=== PATIENT | female | born 1995 | race Caucasian/White ===

== ENCOUNTER 2020-06-26 10:00 | Outpatient (REF) | payer OTHER, SELFPAY | END 2020-06-26 10:01 | disposition home or self-care (01) | LOC: HO.WFDLDS 10:00 | PROVIDERS: PCP Hospitalist; Visit Provider Hospitalist | DX: Z11.7 Encounter for testing for latent tuberculosis infection (principal) | CPT/HCPCS: 86481 ==

== ENCOUNTER 2024-12-02 08:21 | Outpatient (AMB) | payer OTHER, SELFPAY ==
--- NOTE | 2024-12-02 08:22 | MHC.PC.OV ---
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 Intake Note: New patient to establish care Tax Examining Technician Required: No Allergies No Known Allergies Allergy (Verified 12/02/24 08:41) Medication List - Last Reconciled 12/02/24 by EKIRY Taveras No Known Home Meds Tobacco use date assessed: 12/02/24 Dental Screening Dental Screen Date: 12/02/24 Did you have a dental visit in the last 12 months?: No Did you have a dental problem in the last 6 months where you did not have access to dental care?: No Was dental information given to patient?: Patient has dentist HPI HPI Comments History of Present Illness Details 29 y/o f with family hx of breast ca (paternal aunt), HLD Surgery: None Family hx: family hx of breast ca (paternal aunt) Social: in school [employer], 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; 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 Skin: no issues Fell down stairs 1 year ago, landed on buttocks; has had tail bone pain when sitting that comes and goes. No medical treatment. Denies neuro deficits. Hx of LBP, this is resolved. HLD noted on previous labs; wt loss since. Will update Exam: General: Well developed, well nourished, in no acute distress. Appears stated age. Head: Normocephalic, atraumatic. Eyes: Pupils are equal, round and reactive to light and accommodation. Conjunctivae are clear. Vision grossly normal. Ears: TMs clear AU, EACS WNL Nose: Patent, without discharge. Mouth: There are no ulcers or lesions noted. No inflammation, no post nasal drip, no plaques nor exudates. Neck: Supple, no adenopathy or thyromegaly. Lungs: Clear to auscultation bilaterally. No rales, rhonchi or wheeze noted. Good air flow in all connolly. Heart: Regular rate and rhythm. No murmurs, click, rubs or gallops are noted. Abdomen: Bowel sounds present in all quadrants. The abdomen is soft, nontender, with no masses or organomegaly noted. No hernias are noted. Musculoskeletal: Joints are nontender, without swelling, redness, or effusions. Range of motion is observed to be normal. Pulses: Peripheral pulses are equal and palpable bilaterally. Extremities: No clubbing, cyanosis nor edema is noted. Neurologic: Gait and station normal. Cranial Nerves 2-12 intact. Motor strength grossly symmetrical and intact. No sensory loss. Balance normal. Skin: No rashes, ulcers, or lesions noted. Turgor is good. Skin color is good. Hair and nails are without abnormalities. Psych: Normal eye contact, affect and mood appropriate, and normal interactions. Patient is alert and appropriate to context. Plan: Routine screening labs Declined tdap and flu Reassured about tail bone injury; fu if worsening Refer to Optometry RTO 1 year CPE, sooner PRN [facility] Medical History (Updated 12/02/24 @ 08:59 by Renea Trujillo, [facility]) Left-sided back pain Mid back pain on right side No pertinent past medical history Surgical History No pertinent past surgical history Family History (Updated 12/02/24 @ 08:33 by Vandana De Guzman MA) Father HTN (hypertension) Mother HTN (hypertension) High cholesterol Brother In good health Social History (Updated 12/02/24 @ 08:32 by Vandana De Guzman MA) Household Members: Significant Other Both parents involved: No Caregiver staying overnight: No Housing: House Are you a primary child care centre manager to a significant other at home: No Do you presently have visiting nurse or other home services: No 75 years or older and lives alone: No Alcohol intake: current Alcohol intake frequency: a few times a month Patient Tobacco Use Status: Never used Tobacco e-Cigarette/Vaping Use: Never Used Second Hand Smoke Exposure: No Substance Use Type: Marijuana service: No Current occupational status: employed 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 1. Little interest or pleasure in doing things: not at all 2. Feeling down, depressed, or hopeless: not at all 3. Trouble falling or staying asleep, or sleeping too much: not at all 4. Feeling tired or having little energy: not at all 5. Poor appetite or overeating: not at all 6. Feeling bad about yourself - or that you are a failure or have let yourself or your family down: not at all 7. Trouble concentrating on things, such as reading the newspaper or watching television: not at all 8. Moving or speaking so slowly that other people could have noticed. Or the opposite - being so fidgety or restless that you have been moving around a lot more than usual: not at all 9. Thoughts that you would be better off or of hurting yourself in some way: not at all Total score: 0 Depression Screening Interpretation: Negative Depression Screening Done: Yes 87391 - PHQ-9 Billing: Yes Source: Developed by Drs. Moises Weldon, Karrie Pinedo, John Ramírez and colleagues, with an educational adiel from [employer]. Thrive Questionnaire Date Thrive assessed: 12/02/24 I am a: Patient What is your living situation today?: I have a steady place to live Within the past 12 months, did the food you bought not last and you didn't have the money to get more?: Never true Within the past 12 months, did you worry whether your food would run out before you got money to buy more?: Never true Do you have trouble paying for medicines?: No Do you have trouble getting transportation to medical appointments?: No Do you have trouble paying your heating and electricity bill?: No Do you have trouble taking care of your child, family member or friend?: No Do you have trouble with day-to-day activities such as bathing, preparing meals, shopping, managing finances, etc.?: No Are you currently unemployed and looking for a job?: No Are you interested in more education?: Yes Please select the resources that you would like help with: None Currently or been in a relationship where the following occur: No concerns reported THRIVE Score: 0 AUDIT C Alcohol Use Questionnaire (AUDIT-C) 1. How often do you have a drink containing alcohol?: Monthly or less 2. How many drinks containing alcohol do you have on a typical day when you are drinking?: 1 or 2 3. How often do you have six or more drinks on one occasion?: Never Total Score: 1 Score Reviewed/Action Taken: Yes PRABHJOT-7 AMB Questionnaire PRABHJOT-7 Date PRABHJOT - 7 assessed: 12/02/24 Feeling nervous, anxious, or on edge: 0 = Not at all Not being able to stop or control worryin = Not at all Worrying too much about different things: 0 = Not at all Trouble relaxin = Not at all Being so restless that it is hard to sit still: 0 = Not at all Becoming easily annoyed or irritable: 0 = Not at all Feeling afraid as if something awful might happen: 0 = Not at all Total PRABHJOT-7 score (0-4 normal; 5-9 mild; 10-14 moderate; 15-21 severe): 0 Source: Developed by Drs. Moises Weldon, Karrie Pinedo, John Ramírez and colleagues, with an educational adiel from [employer]. PRABHJOT-7 Assessment Billing PRABHJOT-7 Assessment Tool: PRABHJOT-7 Assessment 29613 Physical exam (Primary Care) Vital Signs: Last Vital Signs Temp 97.3 F 12/02/24 08:28 Pulse 69 12/02/24 08:28 Resp 12 12/02/24 08:28 BP 108/66 12/02/24 08:28 Pulse Ox 98 12/02/24 08:28 Oxygen Delivery Method Room Air 12/02/24 08:28 BMI result Body Mass Index 23.5 Tobacco/Smoking Status: Tobacco use Status Tobacco use date assessed 12/02/24 12/02/24 08:30 Patient Tobacco Use Status Never used Tobacco 12/02/24 08:32 e-Cigarette/Vaping Use Never Used 12/02/24 08:32 PHQ-9: PHQ-9 Score PHQ-9: Total score 0 12/02/24 08:30 Depression Screening Interpretation: Negative Thrive Assessment: Date of Thrive Assessment Date Thrive assessed 12/02/24 12/02/24 08:30 Currently or been in a relationship where the following occur: No concerns reported Coding Level of Care Code Est Pt Prev Care 18-39y(43639) Diagnoses Encounter for general adult medical examination without abnormal findings Z00.00 Tetanus, diphtheria, and acellular pertussis (Tdap) vaccination declined Z28.21 Influenza vaccination declined Z28.21 Family history of breast cancer Z80.3 Laboratory exam ordered as part of routine general medical examination Z00.00 Moderate mixed hyperlipidemia not requiring statin therapy E78.2 Hyperlipidemia type: moderate mixed hyperlipidemia not requiring statin therapy Additional Codes PRABHJOT-7 Assessment Billing - PRABHJOT-7 Assessment Tool: PRABHJOT-7 Assessment 08494 ([id number]) PHQ-9 - 22540 - PHQ-9 Billing: Yes ([id number]) Assessment & Plan Assessment & Plan (1) Encounter for general adult medical examination without abnormal findings: Onset Date: ~11/2024 Code(s): Z00.00 - Encounter for general adult medical examination without abnormal findings Category: Medical (2) Tetanus, diphtheria, and acellular pertussis (Tdap) vaccination declined: Code(s): Z28.21 - Immunization not carried out because of patient refusal Category: Medical (3) Influenza vaccination declined: Code(s): Z28.21 - Immunization not carried out because of patient refusal Category: Medical (4) Family history of breast cancer: Comment: paternal aunt Code(s): Z80.3 - Family history of malignant neoplasm of breast Category: Medical (5) Laboratory exam ordered as part of routine general medical examination: Code(s): Z00.00 - Encounter for general adult medical examination without abnormal findings Category: Medical (6) HLD (hyperlipidemia): Code(s): E78.5 - Hyperlipidemia, unspecified Category: Medical Qualifiers: Hyperlipidemia type: moderate mixed hyperlipidemia not requiring statin therapy Qualified Code(s): E78.2 - Mixed hyperlipidemia Plan . Orders: Orders Lipid Panel Today Z00.00 - Encounter for general adult medical examination without abnormal findings Vitamin D 25-OH Total Today Z00.00 - Encounter for general adult medical examination without abnormal findings Comprehensive Met. Panel Today Z00.00 - Encounter for general adult medical examination without abnormal findings Ferritin Today Z00.00 - Encounter for general adult medical examination without abnormal findings Hemoglobin A1c Today Z00.00 - Encounter for general adult medical examination without abnormal findings Microalbumin, Random (w Creat) Today Z00.00 - Encounter for general adult medical examination without abnormal findings TSH reflex Free T4 Today Z00.00 - Encounter for general adult medical examination without abnormal findings Vitamin B12 and Folate Today Z00.00 - Encounter for general adult medical examination without abnormal findings Referrals Optometry Referral H53.8 - Other visual disturbances Patient Instructions: Health screenings for women You should visit your health care provider from time to time, even if you are healthy. The purpose of these visits is to: Screen for medical issues Assess your risk for future medical problems Encourage a healthy lifestyle Update vaccinations and other preventive care services Help you get to know your provider in case of an illness Information Even if you feel fine, you should still see your provider for regular checkups. These visits can help you avoid problems in the future. For example, the only way to find out if you have high blood pressure is to have it checked regularly. High blood sugar and high cholesterol levels also may not have any symptoms in the early stages. A simple blood test can check for these conditions. There are specific times when you should see your provider or receive specific health screenings. The [place] Preventive Services Task Force publishes a list of recommended screenings. Below are screening guidelines for women ages 18 to 39. BLOOD PRESSURE SCREENING Your blood pressure should be checked at least once every 3 to 5 years if: Your blood pressure is in the normal range (top number less than 120 mm Hg and bottom number less than 80 mm Hg) You don't have risk factors for high blood pressure Ask your provider if you need your blood pressure checked more often if: The top number is 120 to 129 mm Hg or the bottom number is 70 to 79 mm Hg You have diabetes, heart disease, kidney problems, are overweight, or have certain other health conditions You have a first-degree relative with high blood pressure You are Black You had high blood pressure during a If the top number is 130 mm Hg or greater or the bottom number is 80 mm Hg or greater, this is considered stage 1 hypertension. Schedule an appointment with your provider to learn how you can reduce your blood pressure. Watch for blood pressure screenings in your area. Ask your provider if you can stop in to have your blood pressure checked. BREAST CANCER SCREENING Experts do not agree about the benefits of breast self-exams in finding breast cancer or saving lives. Talk to your provider about what is best for you. A screening mammogram is not recommended for most women under age 40. Your provider may discuss and recommend mammograms, MRI scans, or ultrasounds if you have an increased risk for breast cancer, such as: A mother or sister who had breast cancer at a young age (most often starting screening earlier than the age the close relative was diagnosed) You carry a high-risk genetic marker CERVICAL CANCER SCREENING Cervical cancer screening should start at age 21 years unless your provider advises otherwise. After the first test: Women ages 21 through 29 should have a Pap test every 3 years. Exoprts do not agree on whether HPV testing is recommended for this age group. Women ages 30 through 65 should be screened with either a Pap test every 3 years or the HPV test every 5 years or both tests every 5 years (called cotesting ). Women who have been treated for precancer (cervical dysplasia) should continue to have Pap tests for 20 years after treatment or until age 65, whichever is longer. If you have had your uterus and cervix removed (total hysterectomy), and you have not been diagnosed with cervical cancer or precancer (high grade cervical neoplasia), you do not need cervical cancer screening. CHOLESTEROL SCREENING Cholesterol screening should begin at: Age 45 for women with no known risk factors for coronary heart disease Age 20 for women with known risk factors for coronary heart disease Repeat cholesterol screening should take place: Every 5 years for women with normal cholesterol levels More often if changes occur in lifestyle (including weight gain and diet) More often if you have diabetes, heart disease, kidney problems, or certain other conditions DIABETES SCREENING You should be screened for diabetes starting at age 35 and then repeated every 3 years if you have no risk factors for diabetes. Screening may need to start earlier and be repeated more often if you have other risk factors for diabetes, such as: You have a first degree relative with diabetes. You are overweight or have obesity. You have high blood pressure, prediabetes, or a history of heart disease. Screening for diabetes should be done if you are planning to become and you are overweight and have other risk factors such as high blood pressure. DENTAL EXAM Go to the dentist once or twice every year for an exam and cleaning. Your dentist will evaluate if you need more frequent visits. EYE EXAM Have an eye exam every 5 to 10 years before age 40. If you have vision problems, have an eye exam every 2 years or more often if recommended by your provider. You should have an eye exam that includes an examination of your retina (back of your eye) at least every year if you have diabetes. IMMUNIZATIONS Commonly needed vaccines include: Flu shot: get one every year. COVID-19 vaccine: ask your provider what is best for you. Tetanus-diphtheria and acellular pertussis (Tdap) vaccine: have one at or after age 19 as one of your tetanus-diphtheria vaccines if you did not receive it as an adolescent. Tetanus-diphtheria: have a booster (or Tdap) every 10 years. Varicella vaccine: receive 2 doses if you never had chickenpox or the varicella vaccine. Hepatitis B vaccine: receive 2, 3, or 4 doses, depending on your exact circumstances. Measles, mumps, and rubella (MMR) vaccine: receive 1 to 2 doses if you are not already immune to MMR. Your provider can tell you if you are immune. Ask your provider about the human papillomavirus (HPV) vaccine if: You have not received the HPV vaccine in the past You have not completed the full vaccine series (you should catch up on this shot) Ask your provider if you should receive other immunizations if you have certain health problems that increase your risk for some diseases such as pneumonia. INFECTIOUS DISEASE SCREENING Women who are sexually active should be screened for chlamydia and gonorrhea up until age 25. Women 25 years and older should be screened for chlamydia and gonorrhea if at high risk. Screening for hepatitis C: All adults ages 18 to 79 should get a one-time test for hepatitis C. people should be screened at every . Screening for human immunodeficiency virus (HIV): All people ages 15 to 65 should get a one-time test for HIV. Depending on your lifestyle and medical history, you may also need to be screened for infections such as syphilis and HIV, as well as other infections. PHYSICAL EXAM All adults should visit their provider from time to time, even if they are healthy. The purpose of these visits is to: Screen for disease Assess your risk of future medical problems Encourage a healthy lifestyle Update your vaccinations and other preventive care services Maintain a relationship with a provider in case of an illness Your height, weight, and BMI should be checked at every exam. During your exam, your provider may ask you about: Depression and anxiety Diet and exercise Alcohol and tobacco use Safety issues, such as using seat belts, smoke detectors, and intimate partner violence Your medicines and risk for interactions SKIN SELF-EXAM Your provider may check your skin for signs of skin cancer, especially if you're at high risk, such as if you: Have had skin cancer before Have close relatives with skin cancer Have a weakened immune system OTHER SCREENING Talk with your provider about colon cancer screening if you have a strong family history of colon cancer or polyps, or if you have had inflammatory bowel disease or polyps yourself. Routine bone density screening of women under 40 is not recommended. Walk-In Care (Urgent Care): We Make it Easy Walk-in for urgent medical issues such as: ? Seasonal Allergies ? Insect Bites ? Cough ? Diarrhea ? Acute Asthma Attacks ? Back, Knee or Joint Pain ? Ear Infection ? Fever without a Rash ? Headaches ? Nausea ? [place]mar Eye, Rash or Skin Irritation ? Sore Throat ? Sports Physicals ? Vomiting Most insurances are accepted. Patients do not need to be part of the [facility] to seek care at the walk-in clinic. Locations [facility] , [place] [address] ? [phone] [facility] in [place] provides services to ages 18 and over. Open Thursday-Thursday: 8 a.m. to 5 p.m. and Thursday: 9 a.m. to 3 p.m.* *Hours may vary due to staffing availability. To confirm Walk-In Care hours in [place], please call [phone]. [address] [place] [address] ? [phone] [facility] in [place] provides services to ages 12 and over. Open Thursday-Thursday: 8 a.m. to 5 p.m. Hours may vary due to staffing availability. To confirm Walk-In Care hours in [place], please call [phone]. LABORATORY SERVICES: [facility] Lab ? Primary Location [address] [place] [address] Thursday through Thursday 6:00 AM ? 5:00 PM Thursday 7:00 AM ? 11:00 AM* [phone] The [facility] Lab is centrally located near the front entrance of the [facility] for easy outpatient access. Convenient parking is provided for outpatients. *Hours may vary due to staffing availability. To confirm Laboratory hours for any location, please call [phone]. Offsite Location For your convenience, we offer offsite laboratory draw stations at the following locations: [address] [place] [address] [address], [address], [place] Thursday through Thursday 7:30 AM ? 1:00 PM* [phone] *Hours may vary due to staffing availability. To confirm Laboratory hours for any location, please call [phone]. [place] ? [facility] [address] [facility], [place] Thursday through Thursday 6:00 AM ? 3:30 PM* Thursday 6:30 AM ? 3 PM* [phone] *Hours may vary due to staffing availability. To confirm Laboratory hours for any location, please call [phone]. [address] [facility] Thursday through Thursday 7:30 AM ? 4:00 PM* [phone] *Hours may vary due to staffing availability. To confirm Laboratory hours for any location, please call [phone] [place] [address] Thursday through 9:00 AM ? 4:00 PM* *Hours may vary due to staffing availability. To confirm Laboratory hours for any location, please call [phone]. Appointments are not necessary. Walk-ins are welcome. Like all the departments throughout the [facility], our Lab undergoes frequent reviews to ensure the quality and accuracy of test results, and our staff takes special pride in its status as a nationally accredited facility. Patient Portal: ONE PATIENT. ONE RECORD. BETTER CARE. [facility] has a fully integrated, cutting-edge mobile electronic health information system that has revolutionized the way we care for our patients and manage our organization. This system improves communication and coordination enabling us to provide safe, higher-quality care, and an overall positive experience for staff and patients. Our first priority, as always, is to deliver the highest quality care possible. The system is running in the background supporting that priority. This portal is for all [facility] services and practices. If you are experiencing any technical difficulties with enrolling or logging into the Patient Portal please complete the [facility] Patient Portal Technical Support Form. [facility] now offers a new secure on-line interactive tool for patients to review their health information ? ?Patient Portal. This interactive web portal will enable patients and their families to take an active role in their care by providing easy, secure access to their health information via the internet. The Patient Portal provides patients with instant access to their health information, including laboratory results, medications, allergies, demographic information, visit history, and more. In addition to managing their own care, parents and health care proxies with authorized consent will appreciate the ability to access the records of those individuals for whom they provide care. Please note: if you wish to gain access (Proxy) to another patient?s portal, you will be required to come to the Medical Records Department in person at [facility]. Both the patient giving proxy access and the proxy will need to provide photo identification and complete the appropriate authorization. The Patient Portal also allows track their appointments online. The [facility] Patient Portal also saves patients time by allowing them to submit updates to their demographic and contact information prior to their visits. Portal email notifications will also alert patients to any new activity on their portal, such as test results and new appointments. In order to initially enroll in the [facility] Patient Portal, you will need to enter some required information including the following: your [facility] Medical Record number your personal home email address name date of Please note: In order to enroll in the [facility] Patient Portal, we need to have your email address on file in your electronic medical record. ?The email address needs to be specific for one person (yourself) in order for your Portal enrollment to be successful. ?You can update your email address in person with our Registration staff when you are registering for a hospital visit. ?Otherwise, you will need to come to the Health Information Management (Medical Records) Department at [facility]. ?We are open from Thursday ? Thursday from 7:30 a.m. ? 4:30 p.m. ?You will be required to present a photo id. Once you have successfully enrolled in the Patient Portal, you will receive a one-time user id and password for the Portal, sent to your email address. ?This will allow you to log into the Patient Portal within 99 hrs and reset your own logon id and password, and define personal security questions. ?Once your permanent login and password have been set, you can log into the [facility] Patient Portal at any time via the blue button above or from the Portal Logon button on any page of the [facility] website. [facility] and [facility] encourage all of our patients to enroll in Patient Portal as it presents a valuable opportunity for patients and their families to actively participate in their care and stay healthy Welcome to [facility]. ?We look forward to working with you.
[2024-12-02 08:28] VITALS: BP 108/66; PULSE 69; RESP 12; TEMP 36.3; O2SAT 98; BMI 23.5
--- OUTSIDE RECORDS SUMMARY | 2024-12-02 08:33 | XMS_ITS | Clinical Summary ---
Author Organization Formerly [facility] Address [facility] [place] [address] Care Team Providers Care Psychological Operations Name Role Phone Unknown Primary Care Provider Unavailabl e Allergies No known active allergies Medications Medication Sig Dispensed Refills Start Date End Date Status desogestreL-ethinyl estradioL (Enskyce) 0.15-0.03 mg TabletIndications:Enc ounter for female control Take 1 tablet by mouth daily. 84 tablet 3 12/27/2019 Active Active Problems Problem Noted Date Diagnosed Date Fatigue 11/19/2018 Resolved Problems Problem Noted Date Diagnosed Date Resolved Date Influenza A 11/05/2017 05/26/2018 Immunizations Name Administration Dates Next Due Influenza Unspecified Formulation 06/09/2018,11/2016 Social History Tobacco Use Types Packs/Day Years Used Date Smoking Tobacco: Never Smokeless Tobacco: Never Sex and Gender Information Value Date Recorded Sex Assigned at Not on file Gender Identity Not on file Sexual Orientation Not on file Last Filed Vital Signs Vital Sign Reading Time Taken Comments Blood Pressure 122/88 11/19/2018 9:51 AM EDT Pulse 70 11/19/2018 9:51 AM EDT Temperature 36.2 ??C (97.1 ??F) 03/25/2018 1:20 PM ED T Respiratory Rate - - Oxygen Saturation 99% 11/19/2018 9:51 AM EDT Inhaled Oxygen Concentration - - Weight 66 kg (145 lb 9.6 oz) 11/19/2018 9:51 AM EDT Height 162.6 cm (5' 4 ) 02/23/2018 1:06 PM EDT Body Mass Index 24.99 02/23/2018 1:06 PM EDT Plan of Treatment Health Maintenance Due Date Last Done Comments HIV screen 02/05/2012 Hepatitis C Screening 02/05/2012 Hepatitis B vaccine (0-59 yr s) and Risk (1) 2013 Tetanus/Diphtheria/Pertussis Vaccines (1 - Tdap) 2013 HPV test 02/05/2024 PAP Smear 02/05/2024 02/23/2018 Covid-19 Vaccine (1 - season) 2024 Influenza (Flu) vaccine (1 o f 1 - Influenza standard series) 05/01/2024 06/09/2018, 06/03/2017 Procedures Procedure Name Priority Date/Time Associated Diagnosis Comments PRODUCTION OFFICER CYTOLOGY FINAL REPORT Routine 02/23/2018 1:23 PM EDT from Last 3 Months or Most Recently Relevant to Health Maintenance Results * Hand Cutter Cytology Final Report (02/23/2018 1:23 PM EDT) Hand Cutter Cytology Final Report [id number] ? Location: [facility] The signing pathologist has (i) examined the relevant preparation(s) for the specimen(s) and (ii) rendered or confirmed the diagnosis(es). . ? Hand Cutter Final DIAGNOSIS Normal Negative for intraepithelial lesion or malignancy (NILM). For consensus guidelines for the management of cervical cancer screening test results, please see: ?? [email or web address] . Electronically signed by: ??Gustabo GARCIA(ASCP)Carolann Verified: ??03/09/2018 ?Merchandising Intern Performed at: ??[facility], [place], [place] HPV RESULTS Not applicable (HPV testing either not indicated or not requested by clinician). STATEMENT OF ADEQUACY Specimen submitted is satisfactory for evaluation. No endocervical component present. Note: ??Initial cross-sectional studies suggested that CURRY cells were more commonly identified when an endocervical component was present, however subsequent longitudinal studies fail to show that women lacking an endocervical component in a Pap smear are at increased risk for CURRY. CLINICAL INFORMATION HPV Option: ?Reflex HPV CT/NG Option: ?? No Preparation: ? Liquid based Pap Specimen Source: ? Cervical LMP: ? 02/17/2018 Hormones?: ? No Hysterectomy?: ? No ?: ? No ?: ? No I.U.D.?: ? No Pelvic Radiation: ?No Prior PRODUCTION OFFICER Therapy?: ?No Hist Abnl Pap/Biopsy?: ?? No Hist of HPV Vaccine?: ?Yes Hist of Smoking?: ?No Hist of MK exposure?: ?? No ICD Diagnosis: ? Z12.4 Encounter for screening for malignant neoplasm of cervix Clinical Data, Significant Therapy and Clinical Impression ?? : ?_ This Pap Test has been evaluated with the assistance of the [employer] Pap Test Imaging System. Note: The Pap test is a screening test for cervical cancer with an inherent false-negative rate dependent upon several variables. For further information please contact the [facility]. Reference: Song ADAME. Call Center Operator of Pap Smear Results. In: Kamala BS, Diego MORRIS, ed. The Pap Smear. [place]: Torito, 2002: 71-77. [facility] 02/23/2018 1:23 PM EDT Martine Holbrook DO PATHOLOGY/CYTOLOGY ORDERABLES [facility] [place] [place] [address] from Last 3 Months or Most Recently Relevant to Health Maintenance Care Teams Psychological Operations Relationship Specialty Start Date End Date Unknown None PCP - General 12/30/21
== END 2024-12-02 08:57 | disposition home or self-care (01) ==
LOC: HO.HMCFM 08:21
PROVIDERS: PCP Nurse Practitioner Family; Visit Provider Nurse Practitioner Family
DX: Z00.00 Encounter for general adult medical examination without abnormal findings (principal); Z28.21 Immunization not carried out because of patient refusal; Z80.3 Family history of malignant neoplasm of breast; E78.2 Mixed hyperlipidemia

== ENCOUNTER → 2024-12-02 08:21 | Outpatient (BNVA) | payer OTHER, SELFPAY | PROVIDERS: PCP Nurse Practitioner Family; Visit Provider Nurse Practitioner Family | DX: Z00.00 Encounter for general adult medical examination without abnormal findings (principal); E78.2 Mixed hyperlipidemia; Z28.21 Immunization not carried out because of patient refusal; Z80.3 Family history of malignant neoplasm of breast | CPT/HCPCS: 96127; 99395 ==

== ENCOUNTER 2025-01-10 09:51 | Outpatient (REF) | payer OTHER, SELFPAY ==
[2025-01-10 11:44] LABS: Estimated Average Glucose 105 mg/dL; Hemoglobin A1C 110.6464 umol/L; Hemoglobin A1c % 5.3 % (<6.0); Total Hemoglobin (HGBA1C) 3251.7574 umol/L
[2025-01-10 12:19] LABS: Folate 7.8 ng/mL (> or = 4.0); Vitamin B12 275 pg/mL (200-900)
[2025-01-10 12:30] LABS: Alanine Aminotransferase 34 U/L (0-31); Albumin Level 4.3 g/dL (3.5-5.0); Anion Gap 12 (12-20); Aspartate Amino Transferase 30 U/L (5-31); Bilirubin Total 0.5 mg/dL (0.0-1.0); Blood Urea Nitrogen 13 mg/dL (9-16); Calcium 9.5 mg/dL (8.4-10.2); Carbon Dioxide 28 mmol/L (22-29); Chloride 105 mmol/L (96-108); Cholesterol 186 mg/dL (<200); Estimated Glomerular Filt Rate > 60; Ferritin 45 ng/mL (10-122); Glucose Random 80 mg/dL (60-115); HDL Cholesterol 60 mg/dL (>40); LDL Cholesterol Calculated 116 mg/dL (<100); Potassium 3.8 mmol/L (3.3-5.1); Sodium 141 mmol/L (135-145); TSH reflex Free T4 1.12 uIU/mL (0.32-4.0); Triglycerides 51 mg/dL (<150); Vitamin D 25-OH Total 36.3 ng/mL (>30)
[2025-01-10 12:35] LABS: Creatinine Urine 55.43 mg/dL; Microalbumin Urine < 5.0 mg/L
[2025-01-10 12:41] LABS: Alkaline Phosphatase 39 U/L (39-117)
== END 2025-01-10 09:52 | disposition home or self-care (01) ==
LOC: HO.WFDLDS 09:51
PROVIDERS: Visit Provider Nurse Practitioner Family
DX: Z00.00 Encounter for general adult medical examination without abnormal findings (principal)
CPT/HCPCS: 36415; 80053; 80061; 82043; 82306; 82570; 82607; 82728; 82746; 83036; 84443

== ENCOUNTER 2025-02-20 10:06 | Outpatient (AMB) | payer OTHER, SELFPAY ==
--- NOTE | 2025-02-20 10:14 | MHC.PC.OV ---
Vital Signs 02/20/25 10:21 Height 5 ft 4 in Weight 133 lb BMI 22.8 BP 98/68 Blood Pressure Location Rt brachial Position Sitting Respiration 12 Pulse 61 Pulse Source Pulse Oximeter Temp 97.6 F Temp Source Oral Pulse Oximetry (%) 98 Oxygen Delivery Method Room Air Intake Visit Reasons: Requesting anxiety meds Intake Note: Patient requesting anxiety meds due to her anxiety Order Processing Clerk Required: No Allergies No Known Allergies Allergy (Verified 02/20/25 10:44) Medication List - Last Reconciled 02/20/25 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 This includes time spent before the visit reviewing the chart, time spent during the visit, and time spent after the visit on documentation, reviewing laboratory results, diagnostic imaging, medications, performing a medically necessary evaluation, counseling on diagnoses, care coordination, ordering appropriate tests, ordering appropriate medications, review of tests performed by other providers, reporting test results with the patient, communication with other healthcare providers. [facility] Medical History (Updated 02/20/25 @ 11:08 by Renea Trujillo, [facility]) Left-sided back pain Mid back pain on right side No pertinent past medical history Surgical History No pertinent past surgical history Family History (Updated 12/02/24 @ 08:33 by Vandana De Guzman MA) Father HTN (hypertension) Mother HTN (hypertension) High cholesterol Brother In good health Social History (Updated 12/02/24 @ 08:32 by Vandana De Guzman MA) Household Members: Significant Other Both parents involved: No Caregiver staying overnight: No Housing: House Are you a primary home care nurse to a significant other at home: No Do you presently have visiting nurse or other home services: No 75 years or older and lives alone: No Alcohol intake: current Alcohol intake frequency: a few times a month Patient Tobacco Use Status: Never used Tobacco e-Cigarette/Vaping Use: Never Used Second Hand Smoke Exposure: No Substance Use Type: Marijuana service: No Current occupational status: employed Current occupation: [employer] Cognitive needs: No Hearing needs: No Vision needs: No Questionnaire PHQ-9 Over the last 2 weeks, how often have you been bothered by any of the following problems? 1. Little interest or pleasure in doing things: more than half the days 2. Feeling down, depressed, or hopeless: nearly every day 3. Trouble falling or staying asleep, or sleeping too much: several days 4. Feeling tired or having little energy: more than half the days 5. Poor appetite or overeating: nearly every day 6. Feeling bad about yourself - or that you are a failure or have let yourself or your family down: nearly every day 7. Trouble concentrating on things, such as reading the newspaper or watching television: several days 8. Moving or speaking so slowly that other people could have noticed. Or the opposite - being so fidgety or restless that you have been moving around a lot more than usual: not at all 9. Thoughts that you would be better off or of hurting yourself in some way: several days Total score: 16 Depression Screening Interpretation: Positive Depression Screening Done: Yes 07746 - PHQ-9 Billing: Yes Source: Developed by Drs. Moises Weldon, John Willett and colleagues, with an educational adiel from [employer]. Thrive Questionnaire Date Thrive assessed: 02/20/25 I am a: Patient What is your living situation today?: I have a steady place to live Within the past 12 months, did the food you bought not last and you didn't have the money to get more?: Never true Within the past 12 months, did you worry whether your food would run out before you got money to buy more?: Never true Do you have trouble paying for medicines?: No Do you have trouble getting transportation to medical appointments?: No Do you have trouble paying your heating and electricity bill?: No Do you have trouble taking care of your child, family member or friend?: No Do you have trouble with day-to-day activities such as bathing, preparing meals, shopping, managing finances, etc.?: No Are you currently unemployed and looking for a job?: No Are you interested in more education?: Yes Please select the resources that you would like help with: None Currently or been in a relationship where the following occur: No concerns reported THRIVE Score: 0 PRABHJOT-7 AMB Questionnaire PRABHJOT-7 Date PRABHJOT - 7 assessed: 02/20/25 Feeling nervous, anxious, or on edge: 3 = Nearly every day Not being able to stop or control worryin = Nearly every day Worrying too much about different things: 3 = Nearly every day Trouble relaxin = Nearly every day Being so restless that it is hard to sit still: 0 = Not at all Becoming easily annoyed or irritable: 2 = More than half the days Feeling afraid as if something awful might happen: 2 = More than half the days Total PRABHJOT-7 score (0-4 normal; 5-9 mild; 10-14 moderate; 15-21 severe): 16 Source: Developed by Drs. Moises Weldon, Karrie Pinedo, John Ramírez and colleagues, with an educational adiel from [employer]. PRABHJOT-7 Assessment Billing PRABHJOT-7 Assessment Tool: PRABHJOT-7 Assessment 88751 Physical exam (Primary Care) Vital Signs: Last Vital Signs Temp 97.6 F 02/20/25 10:21 Pulse 61 02/20/25 10:21 Resp 12 02/20/25 10:21 BP 98/68 02/20/25 10:21 Pulse Ox 98 02/20/25 10:21 Oxygen Delivery Method Room Air 02/20/25 10:21 BMI result Body Mass Index 22.8 Tobacco/Smoking Status: Tobacco use Status Tobacco use date assessed 02/20/25 02/20/25 10:19 Patient Tobacco Use Status Never used Tobacco 02/20/25 10:19 e-Cigarette/Vaping Use Never Used 02/20/25 10:19 PHQ-9: PHQ-9 Score PHQ-9: Total score 16 02/20/25 10:23 Depression Screening Interpretation: Positive Thrive Assessment: Date of Thrive Assessment Date Thrive assessed 02/20/25 02/20/25 10:19 Currently or been in a relationship where the following occur: No concerns reported Coding Level of Care Code Est Pt Level 4 (44365) Complex EM visit Add On G2211 Diagnoses PRABHJOT (generalized anxiety disorder) F41.1 Mild episode of recurrent major depressive disorder F33.0 Major depression episode severity: mild Additional Codes PRABHJOT-7 Assessment Billing - PRABHJOT-7 Assessment Tool: PRABHJOT-7 Assessment 01836 ([id number]) PHQ-9 - 93260 - PHQ-9 Billing: Yes ([id number]) Assessment & Plan Assessment & Plan (1) PRABHJOT (generalized anxiety disorder): Code(s): F41.1 - Generalized anxiety disorder Category: Medical (2) MDD (major depressive disorder), recurrent episode: Code(s): F33.9 - Major depressive disorder, recurrent, unspecified Category: Medical Qualifiers: Major depression episode severity: mild Qualified Code(s): F33.0 - Major depressive disorder, recurrent, mild Plan . Medications: New citalopram (Celexa) 10 mg PO DAILY 30 tabs 1RF Patient Instructions: National Suicide and Crisis Lifeline: Available 24 hours a day, 7 days a week, 365 days a year Dial 988 with any telephone to speak to someone immediately [address] [address] , Walk ins [facility] (Mental / Behavioral health therapist: [address] [place] [address] [facility]: [address] [place] [address] Open from 10am - 12pm (walk ins [place]) [facility] Crisis Services: [address] [place] [address] Walk in hours from 10am - 12pm Behavioral health Network: [address] [place] [address] [place] [id number] Thursday through Thursday 8am - 8pm Thursday and Thursday 9am - 5pm Crisis Hotlines Suicide prevention, domestic violence, and other crisis hotlines for youth, young adults, and their friends and families. [facility] Safeline: The [facility] Safeline helps youth who have run away, are thinking about running away, or who already ran away but are ready to come home. Parents and guardians can also contact the hotline if they are worried about their child running away or if their child has already left home. The hotline is available 24 hours a day, seven days a week. Youth, parents, and guardians can also use the online chat feature on the [facility] website to ask for help and get support, [place] [address] [facility] National Suicide Prevention Lifeline: The National Suicide Prevention Lifeline is a network of local crisis centers that are available 23/03 to provide support for youth and adults who are in any kind of emotional crisis. In addition to the main hotline number listed above, there are several other numbers to call depending on your needs: Malay Language: Deaf and Hard of [phone] Veterans: Disaster Distress: Anyone can also use their online chat feature on their website. National Suicide Prevention Lifeline [facility] Helpline: The [facility] Helpline is available to anyone in [place] who is need of emotional support. Anyone can call or text the helpline to receive help from specially trained volunteers. [place] high school and college students can also get online support through the IMHear_ program. For high school students, volunteers ages 15-18 are available Thursday- from 6-9PM. For college students, IMHear_ is available Thursday-Thursday from 5-9PM. The Sukhjinder Project - The Sukhjinder Project is a 23/03 crisis intervention and suicide prevention hotline for LGBTQ youth. Youth can also text Sukhjinder to for support, or use the online chat feature on the Sukhjinder Project's website. TrevorText is available Thursday-Thursday between 3-10PM. TrevorChat is available seven days a week between 3-10PM. SafeLink: SafeLink is for anyone who is being affected by domestic violence or dating violence. Volunteers at SafeLink speak [place] Citizen and Malay, and [employer] also has a service that can provide translation in more than 130 languages. TTY:
[2025-02-20 10:21] VITALS: BP 98/68; PULSE 61; RESP 12; TEMP 36.4; O2SAT 98; BMI 22.8
== END 2025-02-20 10:56 | disposition home or self-care (01) ==
LOC: HO.HMCFM 10:07
PROVIDERS: PCP Nurse Practitioner Family; Visit Provider Nurse Practitioner Family
DX: F41.1 Generalized anxiety disorder (principal); F33.0 Major depressive disorder, recurrent, mild

== ENCOUNTER → 2025-02-20 10:06 | Outpatient (BNVA) | payer OTHER, SELFPAY | PROVIDERS: PCP Nurse Practitioner Family; Visit Provider Nurse Practitioner Family | DX: F41.1 Generalized anxiety disorder (principal); F33.0 Major depressive disorder, recurrent, mild | CPT/HCPCS: 96127; 99212 ==

== ENCOUNTER 2025-04-06 13:27 | Outpatient (AMB) | payer OTHER, SELFPAY ==
--- NOTE | 2025-04-06 13:30 | A.OFFPC_ITS ---
Vital Signs 04/06/25 13:33 Height 5 ft 4 in Weight 130 lb 4 oz BMI 22.4 BP 102/68 Blood Pressure Location Rt brachial Position Sitting Respiration 12 Pulse 65 Pulse Source Pulse Oximeter Temp 97.4 F Temp Source Oral Pulse Oximetry (%) 100 Oxygen Delivery Method Room Air Intake Visit Reasons: 6 weeks fu celexa start Intake Note: 6 weeks follow up on med started. Allergies No Known Allergies Allergy (Verified 04/06/25 13:58) Medication List - Last Reconciled 04/06/25 by SABI Taveras citalopram (Celexa) 10 mg PO DAILY Tobacco use date assessed: 04/06/25 Dental Screening Dental Screen Date: 04/06/25 Did you have a dental visit in the last 12 months?: Yes Did you have a dental problem in the last 6 months where you did not have access to dental care?: No Was dental information given to patient?: Patient has dentist HPI HPI Comments History of Present Illness Details 30 y/o f with family hx of breast ca (p aternal aunt), HLD, MDD, PRABHJOT Surgery: None Family hx: family hx of breast ca (paternal aunt) 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: 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 [employer], 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, 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; 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 Health Maintenance Tdap declined Flu declined Pap @ [facility] 2020, next appt May 2025 Specialists [facility]EV[facility] OPERATOR counseling Optho Here today 6 week fu Celexa start for PRABHJOT with panic and MDD: Taking at HS now for the last 2 weeks Mondays are the worst for panic attacks Cont w therapist Will be taking 5 classes in May worries about this causing uptick in Sx cont to have passive thoughts of suicide, but no more ; no plan Denies SI/HI contracts for safety Cont w lots of family stressors Cont to feel support from boyfriend and her dog (Karl) Has missed work but d/t family stuff Still not eating a lot; but is now feeling hungry Exam: Awake alert NAD RRR LS CTAB Mood and affect appropriate Plan cont celexa 10mg po QD Cont counseling RTO 6 weeks for re-check sooner PRN PFSH Medical History (Updated 02/20/25 @ 11:08 by SABI Taveras) Left-sided back pain Mid back pain on right side No pertinent past medical history Surgical History No pertinent past surgical history Family History (Updated 12/02/24 @ 08:33 by Vandana De Guzman MA) Father HTN (hypertension) Mother HTN (hypertension) High cholesterol Brother In good health Social History (Updated 12/02/24 @ 08:32 by Vandana De Guzman MA) Household Members: Significant Other Both parents involved: No Caregiver staying overnight: No Housing: House Are you a primary pediatric care coordinator to a significant other at home: No Do you presently have visiting nurse or other home services: No 75 years or older and lives alone: No Alcohol intake: current Alcohol intake frequency: a few times a month Patient Tobacco Use Status: Never used Tobacco e-Cigarette/Vaping Use: Never Used Second Hand Smoke Exposure: No Substance Use Type: Marijuana service: No Current occupational status: employed 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[employer] Cognitive needs: No Hearing needs: No Vision needs: No Questionnaire Thrive Questionnaire Date Thrive assessed: 12/02/24 I am a: Patient What is your living situation today?: I have a steady place to live Within the past 12 months, did the food you bought not last and you didn't have the money to get more?: Never true Within the past 12 months, did you worry whether your food would run out before you got money to buy more?: Never true Do you have trouble paying for medicines?: No Do you have trouble getting transportation to medical appointments?: No Do you have trouble paying your heating and electricity bill?: No Do you have trouble taking care of your child, family member or friend?: No Do you have trouble with day-to-day activities such as bathing, preparing meals, shopping, managing finances, etc.?: No Are you currently unemployed and looking for a job?: No Are you interested in more education?: Yes Please select the resources that you would like help with: None Currently or been in a relationship where the following occur: No concerns reported THRIVE Score: 0 PRABHJOT-7 AMB Questionnaire PRABHJOT-7 Date PRABHJOT - 7 assessed: 02/20/25 Source: Developed by Drs. Moises Weldon, Karrie Pinedo, John Ramírez and colleagues, with an educational adiel from [employer]. Physical exam (Primary Care) Vital Signs: Last Vital Signs Temp 97.4 F 04/06/25 13:33 Pulse 65 04/06/25 13:33 Resp 12 04/06/25 13:33 BP 102/68 04/06/25 13:33 Pulse Ox 100 04/06/25 13:33 Oxygen Delivery Method Room Air 04/06/25 13:33 BMI result Body Mass Index 22.4 Tobacco/Smoking Status: Tobacco use Status Tobacco use date assessed 04/06/25 04/06/25 13:35 Patient Tobacco Use Status Never used Tobacco 04/06/25 13:33 e-Cigarette/Vaping Use Never Used 04/06/25 13:33 Thrive Assessment: Date of Thrive Assessment Date Thrive assessed 12/02/24 04/06/25 13:33 Currently or been in a relationship where the following occur: No concerns reported Coding Level of Care Code Est Pt Level 3 (27275) Complex EM visit Add On G2211 Diagnoses PRABHJOT (generalized anxiety disorder) F41.1 Mild episode of recurrent major depressive disorder F33.0 Major depression episode severity: mild Assessment & Plan Assessment & Plan (1) PRABHJOT (generalized anxiety disorder): Code(s): F41.1 - Generalized anxiety disorder Category: Medical (2) MDD (major depressive disorder), recurrent episode: Code(s): F33.9 - Major depressive disorder, recurrent, unspecified Category: Medical Qualifiers: Major depression episode severity: mild Qualified Code(s): F33.0 - Major depressive disorder, recurrent, mild Plan . Medications: Refilled 2 citalopram (Celexa) 10 mg PO DAILY 30 tabs 1RF
--- OUTSIDE RECORDS SUMMARY | 2025-04-06 13:31 | XMS_ITS | Clinical Summary ---
Author Organization [facility] Address [facility] [place] [address] Care Team Providers Care Client Services Manager Name Role Phone Unknown Primary Care Provider Unavailabl e Allergies No known active allergies Medications desogestreL-ethi nyl estradioL (Enskyce) 0.15-0.03 mg TabletIndication s:Encounter for female control Take 1 tablet by mouth daily. 84 tablet 3 12/27/2019 Active Active Problems Problem Noted Date Diagnosed Date Fatigue 11/19/2018 Resolved Problems Problem Noted Date Diagnosed Date Resolved Date Influenza A 11/05/2017 05/26/2018 Immunizations Immunization Administration Dates Next Due Influenza Unspecified Formulation 06/09/2018,11/2016 Social History Tobacco Use Types Packs/Day Years Used Date Smoking Tobacco: Never Smokeless Tobacco: Never Comments No Sex and Gender Information Value Date Recorded Sex Assigned at Not on file Legal Sex Female 6:08 AM EST Gender Identity Not on file Sexual Orientation Not on file Last Filed Vital Signs Vital Sign Reading Time Taken Comments Blood Pressure 122/88 11/19/2018 9:51 AM EDT Pulse 70 11/19/2018 9:51 AM EDT Temperature 36.2 C (97.1 F) 03/25/2018 1:20 PM EDT Respiratory Rate - - Oxygen Saturation 99% [...] o f 1 - Influenza standard series) 05/01/2025 06/09/2018, 06/03/2017 Procedures Procedure Name Priority Date/Time Associated Diagnosis Comments MAKEUP SALES ADVISOR CYTOLOGY FINAL REPORT Routine 02/23/2018 1:23 PM EDT from Last 3 Months or Most Recently Relevant to Health Maintenance Results * Batterboard Setter Cytology Final Report (02/23/2018 1:23 PM EDT) Batterboard Setter Cytology Final Report [id number] Location: [facility] The signing pathologist has (i) examined the relevant preparation(s) for the specimen(s) and (ii) rendered or confirmed the diagnosis(es). . Batterboard Setter Final DIAGNOSIS Normal Negative for intraepithelial lesion or malignancy (NILM). For consensus guidelines for the management of cervical cancer screening test results, please see: http://www.asccp. org . Electronically signed by: Gustabo GARCIA(ASCP)Carolann Verified: 03/09/2018 Facility Maintenance Technician Performed at: [place] [place], [place], [place] HPV RESULTS Not applicable (HPV testing either not indicated or not requested by clinician). STATEMENT OF ADEQUACY Specimen submitted is satisfactory for evaluation. No endocervical component present. Note: Initial cross-sectional studies suggested that CURRY cells were more commonly identified when an endocervical component was present, however subsequent longitudinal studies fail to show that women lacking an endocervical component in a Pap smear are at increased risk for CURRY. CLINICAL INFORMATION HPV Option: Reflex HPV CT/NG Option: No Preparation: Liquid based Pap Specimen Source: Cervical LMP: 02/17/2018 Hormones?: No Hysterectomy?: No ?: No ?: No I.U.D.?: No Pelvic Radiation: No Prior MAKEUP SALES ADVISOR Therapy?: No Hist Abnl Pap/Biopsy?: No Hist of HPV Vaccine?: Yes Hist of Smoking?: No Hist of MK exposure?: No ICD Diagnosis: Z12.4 Encounter for screening for malignant neoplasm of cervix Clinical Data, Significant Therapy and Clinical Impression : _ This Pap Test has been evaluated with the assistance of the [employer] Pap Test Imaging System. Note: The Pap test is a screening test for cervical cancer with an inherent false-negative rate dependent upon several variables. For further information please contact the [facility] [place]. Reference: Song ADAME. Forestry Technician of Pap Smear Results. In: Kamala BS, Diego HH, ed. The Pap Smear. [place]: Torito, 2002: 71-77. [facility] 02/23/2018 1:23 PM EDT Martine Holbrook DO PATHOLOGY/CYTOLOGY ORDERABL ES Final Result [facility] [place] [address] from Last 3 Months or Most Recently Relevant to Health Maintenance Care Teams Client Services Manager Relationship Specialty Start Date End Date Unknown None PCP - General 12/30/21
[2025-04-06 13:33] VITALS: BP 102/68; PULSE 65; RESP 12; TEMP 36.3; O2SAT 100; BMI 22.4
== END 2025-04-06 14:03 | disposition home or self-care (01) ==
LOC: HO.HMCFM 13:28
PROVIDERS: PCP Nurse Practitioner Family; Visit Provider Nurse Practitioner Family
DX: F41.1 Generalized anxiety disorder (principal); F33.0 Major depressive disorder, recurrent, mild

== ENCOUNTER → 2025-04-06 13:27 | Outpatient (BNVA) | payer OTHER, SELFPAY | PROVIDERS: PCP Nurse Practitioner Family; Visit Provider Nurse Practitioner Family | DX: F41.1 Generalized anxiety disorder (principal); F33.0 Major depressive disorder, recurrent, mild; E78.5 Hyperlipidemia, unspecified | CPT/HCPCS: 99212 ==

== ENCOUNTER 2025-05-19 12:35 | Outpatient (AMB) | payer OTHER, SELFPAY ==
--- OUTSIDE RECORDS SUMMARY | 2025-05-19 12:38 | XMS_ITS | Clinical Summary ---
Author Organization [facility] Address [facility] [place] [address] Care Team Providers Care Mold Cleaning And Storage Supervisor Name Role Phone Unknown Primary Care Provider [...] 02/05/2024 02/23/2018 Covid-19 Vaccine (1 - season) 2025 Influenza (Flu) vaccine (1 o f 1 - Influenza standard series) 05/01/2025 06/09/2018, 06/03/2017 Procedures Procedure Name Priority Date/Time Associated Diagnosis Comments BATCH UNLOADER CYTOLOGY FINAL REPORT Routine 02/23/2018 1:23 PM EDT from Last 3 Months or Most Recently Relevant to Health Maintenance Results * Housecalls Nurse Cytology Final Report (02/23/2018 1:23 PM EDT) Housecalls Nurse Cytology Final Report [id number] Location: [facility] The signing pathologist has (i) examined the relevant preparation(s) for the specimen(s) and (ii) rendered or confirmed the diagnosis(es). . Housecalls Nurse Final DIAGNOSIS Normal Negative for intraepithelial lesion or malignancy (NILM). For consensus guidelines for the management of cervical cancer screening test results, please see: http://www.asccp. org . Electronically signed by: Gustabo GARCIA(ASCP)Carolann Verified: 03/09/2018 Wheelabrator Operator Performed at: -[facility] [place] Dept. of [place], [place], [place] HPV RESULTS Not applicable (HPV testing [...] No I.U.D.?: No Pelvic Radiation: No Prior BATCH UNLOADER Therapy?: No Hist Abnl Pap/Biopsy?: No Hist of HPV Vaccine?: Yes Hist of Smoking?: No Hist of MK exposure?: No ICD Diagnosis: Z12.4 Encounter for screening for malignant neoplasm of cervix Clinical Data, Significant Therapy and Clinical Impression : _ This Pap Test has been evaluated with the assistance of the [employer] Pap Test Imaging System. Note: The Pap test is a screening test for cervical cancer with an inherent false-negative rate dependent upon several variables. For further information please contact the [facility] [place]. Reference: Song ADAME. Division Supervisor of Pap Smear Results. In: Kamala BS, Diego HH, ed. The Pap Smear. [place]: Torito, 2002: 71-77. [facility] 02/23/2018 1:23 PM EDT Martine Holbrook DO PATHOLOGY/CYTOLOGY ORDERABL ES Final Result [facility] [place] [address] from Last 3 Months or Most Recently Relevant to Health Maintenance Care Teams Mold Cleaning And Storage Supervisor Relationship Specialty Start Date End Date Unknown None PCP - General 12/30/21
[2025-05-19 12:41] VITALS: BP 120/86; PULSE 83; O2SAT 98; BMI 22.3
--- NOTE | 2025-05-19 12:41 | MHC.PC.OV ---
Vital Signs 05/19/25 12:41 Height 5 ft 4 in Weight 130 lb BMI 22.3 BP 120/86 Blood Pressure Location Rt brachial Position Sitting Pulse 83 Pulse Source Pulse Oximeter Pulse Oximetry (%) 98 Oxygen Delivery Method Room Air Intake Visit Reasons: 6 weeks 15 min fu celexa Allergies No Known Allergies Allergy (Verified 05/19/25 13:18) Medication List - Last Reconciled 05/19/25 by Renea Trujillo, MARKETING ASSOCIATE- citalopram (Celexa) 10 mg PO DAILY Tobacco use date assessed: 05/19/25 Dental Screening Dental Screen Date: 05/19/25 Did you have a dental visit in the last 12 months?: No Did you have a dental problem in the last 6 months where you did not have access to dental care?: No Was dental information given to patient?: Patient has dentist HPI HPI Comments History of Present Illness Details 30 y/o f with family hx of breast ca (paternal aunt), HLD, MDD, PRABHJOT Surgery: None Family hx: family hx of breast ca (paternal aunt) Social: in school [place] [employer], MELA gamboa, 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; works from [employer] & in [employer] Tdap declined Flu declined Pap @ [facility] [place] 2020, next appt May 2025 Specialists [facility] counseling Optho Here today 6 week fu Celexa for PRABHJOT with panic and MDD: Anxiety is much better Taking classes for school and doing great melatonin at night Mondays are no longer trigger days No panic attacks appetite is back and eating normal Family stuff cont; may get into family counseling w/ parents, unsure Relationship with Dad is good; Mom not so good. No passive SI thoughts NO sense of doom Cont in counseling ObGyn appt next month, will be trying to have a baby next year. Exam: Awake alert NAD RRR LS CTAB Mood and affect appropriate Plan cont celexa 10mg po QD Cont counseling Start OTC Today is resolution of sx, cont med for 1 year and discuss taper PRN (05/19/26) RTO November CPE sooner as needed Total time spent caring for the patient today was 30 minutes. This includes time spent before the visit reviewing the chart, time spent during the visit, and time spent after the visit on documentation, reviewing laboratory results, diagnostic imaging, medications, performing a medically necessary evaluation, counseling on diagnoses, care coordination, ordering appropriate tests, ordering appropriate medications, review of tests performed by other providers, reporting test results with the patient, communication with other healthcare providers. [facility] Medical History Left-sided back pain Mid back pain on right side No pertinent past medical history Surgical History No pertinent past surgical history Family History Father HTN (hypertension) Mother HTN (hypertension) High cholesterol Brother In good health Social History Household Members: Significant Other Both parents involved: No Caregiver staying overnight: No Housing: House Are you a primary managed care manager to a significant other at home: No Do you presently have visiting nurse or other home services: No 75 years or older and lives alone: No Alcohol intake: current Alcohol intake frequency: a few times a month Patient Tobacco Use Status: Never used Tobacco e-Cigarette/Vaping Use: Never Used Second Hand Smoke Exposure: No Substance Use Type: Marijuana service: No Current occupational status: employed 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 1. Little interest or pleasure in doing things: not at all 2. Feeling down, depressed, or hopeless: several days 3. Trouble falling or staying asleep, or sleeping too much: not at all 4. Feeling tired or having little energy: several days 5. Poor appetite or overeating: several days 6. Feeling bad about yourself - or that you are a failure or have let yourself or your family down: several days 7. Trouble concentrating on things, such as reading the newspaper or watching television: not at all 8. Moving or speaking so slowly that other people could have noticed. Or the opposite - being so fidgety or restless that you have been moving around a lot more than usual: not at all 9. Thoughts that you would be better off or of hurting yourself in some way: not at all Total score: 4 Depression Screening Interpretation: Negative Depression Screening Done: Yes 36526 - PHQ-9 Billing: Yes Source: Developed by Drs. Moises Weldon, Karrie Pinedo, John Ramírez and colleagues, with an educational adiel from [employer]. Thrive Questionnaire Date Thrive assessed: 05/19/25 I am a: Patient What is your living situation today?: I have a steady place to live Within the past 12 months, did the food you bought not last and you didn't have the money to get more?: Never true Within the past 12 months, did you worry whether your food would run out before you got money to buy more?: Never true Do you have trouble paying for medicines?: No Do you have trouble getting transportation to medical appointments?: No Do you have trouble paying your heating and electricity bill?: No Do you have trouble taking care of your child, family member or friend?: No Do you have trouble with day-to-day activities such as bathing, preparing meals, shopping, managing finances, etc.?: No Are you currently unemployed and looking for a job?: No Are you interested in more education?: Yes Please select the resources that you would like help with: None Currently or been in a relationship where the following occur: No concerns reported THRIVE Score: 0 AUDIT C Alcohol Use Questionnaire (AUDIT-C) 1. How often do you have a drink containing alcohol?: Monthly or less 2. How many drinks containing alcohol do you have on a typical day when you are drinking?: 1 or 2 3. How often do you have six or more drinks on one occasion?: Never Total Score: 1 Score Reviewed/Action Taken: Yes PRABHJOT-7 AMB Questionnaire PRABHJOT-7 Date PRABHJOT - 7 assessed: 05/19/25 Feeling nervous, anxious, or on edge: 1 = Several days Not being able to stop or control worryin = Several days Worrying too much about different things: 1 = Several days Trouble relaxin = Several days Being so restless that it is hard to sit still: 0 = Not at all Becoming easily annoyed or irritable: 0 = Not at all Feeling afraid as if something awful might happen: 0 = Not at all Total PRABHJOT-7 score (0-4 normal; 5-9 mild; 10-14 moderate; 15-21 severe): 4 Source: Developed by Drs. Moises Weldon, Karrie Pinedo, John Ramírez and colleagues, with an educational adiel from [employer]. PRABHJOT-7 Assessment Billing PRABHJOT-7 Assessment Tool: PRABHJOT-7 Assessment 07448 Physical exam (Primary Care) Vital Signs: Last Vital Signs Pulse 83 05/19/25 12:41 BP 120/86 05/19/25 12:41 Pulse Ox 98 05/19/25 12:41 Oxygen Delivery Method Room Air 05/19/25 12:41 BMI result Body Mass Index 22.3 Tobacco/Smoking Status: Tobacco use Status Tobacco use date assessed 05/19/25 05/19/25 12:48 Patient Tobacco Use Status Never used Tobacco 05/19/25 12:48 e-Cigarette/Vaping Use Never Used 05/19/25 12:48 PHQ-9: PHQ-9 Score PHQ-9: Total score 4 05/19/25 12:48 Depression Screening Interpretation: Negative Thrive Assessment: Date of Thrive Assessment Date Thrive assessed 05/19/25 05/19/25 12:48 Currently or been in a relationship where the following occur: No concerns reported Coding Level of Care Code Est Pt Level 4 (35192) Complex EM visit Add On G2211 Diagnoses Influenza vaccination declined Z28.21 PRABHJOT (generalized anxiety disorder) F41.1 Mild episode of recurrent major depressive disorder F33.0 Major depression episode severity: mild Additional Codes PRABHJOT-7 Assessment Billing - PRABHJOT-7 Assessment Tool: PRABHJOT-7 Assessment 81972 ([id number]) PHQ-9 - 92912 - PHQ-9 Billing: Yes ([id number]) Assessment & Plan Assessment & Plan (1) Influenza vaccination declined: Code(s): Z28.21 - Immunization not carried out because of patient refusal Category: Medical (2) PRABHJOT (generalized anxiety disorder): Comment: resolution date 05/19/25 Code(s): F41.1 - Generalized anxiety disorder Category: Medical (3) MDD (major depressive disorder), recurrent episode: Comment: resolution date 05/19/25 Code(s): F33.9 - Major depressive disorder, recurrent, unspecified Category: Medical Qualifiers: Major depression episode severity: mild Qualified Code(s): F33.0 - Major depressive disorder, recurrent, mild Plan . Medications: Refilled citalopram (Celexa) 10 mg PO DAILY 90 tabs 1RF
== END 2025-05-19 13:26 | disposition home or self-care (01) ==
LOC: HO.HMCFM 12:36
PROVIDERS: PCP Nurse Practitioner Family; Visit Provider Nurse Practitioner Family
DX: Z28.21 Immunization not carried out because of patient refusal (principal); F41.1 Generalized anxiety disorder; F33.0 Major depressive disorder, recurrent, mild

== ENCOUNTER → 2025-05-19 12:35 | Outpatient (BNVA) | payer OTHER, SELFPAY | PROVIDERS: PCP Nurse Practitioner Family; Visit Provider Nurse Practitioner Family | DX: F41.1 Generalized anxiety disorder (principal); F33.0 Major depressive disorder, recurrent, mild | CPT/HCPCS: 96127; 99212 ==

== ENCOUNTER 2025-07-26 09:52 | Outpatient (AMB) | payer OTHER, SELFPAY ==
--- NOTE | 2025-07-26 09:56 | MHC.OFFVIS ---
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 Last pap smear approx 5 years ago, normal hx. 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 She has not had an exam and it about 5 years. She and her boyfriend are hoping to start a family after she graduates in December. 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 There are some genetic concerns that she has questions about and that her mother told her she should get screened for if she gets and is carrying a boy. 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 She has no history or worries about any infections she is okay with getting screened during the exam but declines blood work for STIs. She normally has regular cycles though she did have 1 period that was 14 days late but when she looked it up she saw that it could be as side effect from starting on the citalopram. [facility] Medical History Left-sided back pain Mid back pain on right side No pertinent past medical history Surgical History No pertinent past surgical history Family History (Updated 07/26/25 @ 09:58 by Lolita Colón MA) Father HTN (hypertension) Mother HTN (hypertension) High cholesterol Brother In good health Paternal Aunt Breast cancer Ovarian cancer Social History Household Members: Significant Other Both parents involved: No Caregiver staying overnight: No Housing: House Are you a primary associate director career services to a significant other at home: No Do you presently have visiting nurse or other home services: No 75 years or older and lives alone: No Alcohol intake: current Alcohol intake frequency: a few times a month Patient Tobacco Use Status: Never used Tobacco e-Cigarette/Vaping Use: Never Used Second Hand Smoke Exposure: No Substance Use Type: Marijuana service: No Current occupational status: employed Current occupation: [employer] Cognitive needs: No Hearing needs: No Vision needs: No Female Reproductive History Menstrual Age of Menarche: 11 Date of last menstrual period: 07/21/25 control method: none Total pregnancies: 0 History of abnormal pap smear: No Physical Exam Vital Signs: Last Vital Signs BP 120/72 07/26/25 10:01 BMI result Body Mass Index 23.7 Const General: healthy appearing, comfortable, no acute distress, well developed and alert Nutritional Appearance: average body habitus Orientation/consciousness: patient oriented x3 Limitations: no limitations HEENT Head: Yes normocephalic Neck Neck: Yes normal visual inspection Chest Chest palpation & inspection: normal inspection of the chest Breast/axilla inspection: normal inspection of the breasts and normal inspection of the axillae Breast/axilla palpation: normal palpation of the breasts and normal palpation of the axillae Resp Effort & Inspection: normal respiratory effort GI Inspection: Yes normal to inspection, No Abdominal wall edema and No distended Palpation (GI): Soft to palpation and nontender Other: Normal external exam vagina pink and moist nulliparous cervix pink and smooth healthy appearing with end of menses staining uterus small midposition mobile nontender adnexa nontender nonenlarged good muscle tone with Kegel. General: Yes bladder normal to palpation External Female Exam: normal external appearance and normal appearance of the urethra Speculum Exam - Vagina: normal appearance of the vagina, normal palpation and normal vaginal discharge Speculum Exam - Cervix: normal appearance of the cervix, normal palpation and nontender Bimanual exam- vagina & uterus: normal bimanual exam, normal palpation, uterine size normal, bladder normal to palpation, consistency normal, normal palpation, uterine mobility normal, uterine shape normal, No Cervical tenderness present, non-tender and no cervical motion tenderness Bimanual Exam- Adnexa, other: normal adnexae, no masses, normal and No adnexal tenderness Neuro General: patient oriented x3 Assessment & Plan Assessment & Plan (1) Family history of breast cancer: Comment: paternal aunt Code(s): Z80.3 - Family history of malignant neoplasm of breast Category: Medical (2) PRABHJOT (generalized anxiety disorder): Comment: resolution date 05/19/25 Code(s): F41.1 - Generalized anxiety disorder Category: Medical (3) Well woman exam with routine gynecological exam: Code(s): Z01.419 - Encounter for gynecological examination (general) (routine) without abnormal findings Category: Medical (4) Papanicolaou smear for cervical cancer screening: Code(s): Z12.4 - Encounter for screening for malignant neoplasm of cervix Category: Medical (5) Encounter for screening examination for sexually transmitted disease: Code(s): Z11.3 - Encounter for screening for infections with a predominantly sexual mode of transmission Category: Medical (6) Family history of blood coagulation disorder: Code(s): Z83.2 - Family history of diseases of the blood and blood-forming organs and certain disorders involving the immune mechanism Category: Medical Plan -----Discussed in this visit the following: healthy balanced diet, regular and consistent exercise, getting recommended health screens, doing the best she can for her particular health concerns, kegel exercises, pap smear screening and followup recommendations, mammography screening and SBE, normal changes in cycles in her life stage--- .---I discussed with pt some of the optimal strategies for planning a , including achieving the best health she can before , including heathy balanced diet, exercise, wt loss to ideal BMI if appropriate, avoiding toxic substances and medications, not smoking, and taking a multivitamin w folic acid daily. Any specific health concerns should be managed before seeking/ putting oneself at risk of pregancy. In addition I reviewed normal cycles, fertility awareness and signs of ovulation, and timing to avoid, and achieve when she feel ready. I also discussed emotional and relationship and support readiness before embarking on . Pap smear done as well as testing for STIs during this visit. Discussed being in as good health as she can be which she is definitely working on. Discussed consideration to a genetics consultation before the so she knows what she will need to be planning for in terms of timing of testing if it is needed early in the . Also discussed that we do not have a birthing facility as part of our institution any longer and for first-time for continuity of care and to not have any gaps the continuity of care in the would be recommended where she would be planning to deliver as there are many questions and issues that arise in a . Coding Level of Care Code New Pt Prev Care 18-39yr([id number] Diagnoses Family history of breast cancer Z80.3 PRABHJOT (generalized anxiety disorder) F41.1 Well woman exam with routine gynecological exam Z01.419 Papanicolaou smear for cervical cancer screening Z12.4 Encounter for screening examination for sexually transmitted disease Z11.3 Family history of blood coagulation disorder Z83.2
[2025-07-26 10:01] VITALS: BP 120/72; BMI 23.7
--- OUTSIDE RECORDS SUMMARY | 2025-07-26 11:27 | XMS_ITS | Clinical Summary ---
Author Organization On License Of [facility] Address [facility] [place] [address] Care Team Providers Care Retail Wireless Associate Name Role Phone Unknown Primary Care Provider [...] Procedure Name Priority Date/Time Associated Diagnosis Comments MACHINE SPECIALIST CYTOLOGY FINAL REPORT Routine 02/23/2018 1:23 PM EDT from Last 3 Months or Most Recently Relevant to Health Maintenance Results * Clinical Engineer Cytology Final Report (02/23/2018 1:23 PM EDT) Clinical Engineer Cytology Final Report [id number] Location: [facility] The signing pathologist has (i) examined the relevant preparation(s) for the specimen(s) and (ii) rendered or confirmed the diagnosis(es). . Clinical Engineer Final DIAGNOSIS Normal Negative for intraepithelial lesion or malignancy (NILM). For consensus guidelines for the management of cervical cancer screening test results, please see: http://www.asccp. org . Electronically signed by: Gustabo GARCIA(ASCP)Carolann Verified: 03/09/2018 Apprentice Performed at: -[facility] Dept. of Pathology, [place], [place] HPV RESULTS Not applicable (HPV testing [...] No I.U.D.?: No Pelvic Radiation: No Prior MACHINE SPECIALIST Therapy?: No Hist Abnl Pap/Biopsy?: No Hist of HPV Vaccine?: Yes Hist of Smoking?: No Hist of MK exposure?: No ICD Diagnosis: Z12.4 Encounter for screening for malignant neoplasm of cervix Clinical Data, Significant Therapy and Clinical Impression : _ This Pap Test has been evaluated with the assistance of the [employer] Pap Test Imaging System. Note: The Pap test is a screening test for cervical cancer with an inherent false-negative rate dependent upon several variables. For further information please contact the [facility]. Reference: Song ADAME. Technical Services Coordinator of Pap Smear Results. In: Kamala BS, Diego HH, ed. The Pap Smear. [place]: [place], 2002: 71-77. [facility] 02/23/2018 1:23 PM EDT Martine Holbrook DO PATHOLOGY/CYTOLOGY ORDERABL ES Final Result [facility] [place] [address] from Last 3 Months or Most Recently Relevant to Health Maintenance Care Teams Retail Wireless Associate Relationship Specialty Start Date End Date Unknown None PCP - General 12/30/21
== END 2025-07-26 11:37 | disposition home or self-care (01) ==
LOC: HO.HWSM 09:52
PROVIDERS: PCP Nurse Practitioner Family; Visit Provider Advanced Practice Midwife
DX: Z01.419 Encounter for gynecological examination (general) (routine) without abnormal findings (principal); F41.1 Generalized anxiety disorder; Z80.3 Family history of malignant neoplasm of breast; Z11.3 Encounter for screening for infections with a predominantly sexual mode of transmission; Z83.2 Family history of diseases of the blood and blood-forming organs and certain disorders involving the immune mechanism
CPT/HCPCS: 99385; 99459

== ENCOUNTER 2025-07-26 09:52 | Outpatient (REF) | payer OTHER, SELFPAY ==
[2025-07-27 03:11] LABS: Bacterial Vaginosis PCR NEGATIVE (Negative); Candida Group PCR NOT DETECTED (Not Detect); Candida glab krusei PCR NOT DETECTED (Not Detect); Trichomonas vaginalis PCR NOT DETECTED (Not Detect)
[2025-07-27 03:43] LABS: CT PCR NOT DETECTED (Not Detect.); NG PCR NOT DETECTED (Not Detect.)
== END 2025-07-26 09:53 | disposition home or self-care (01) ==
LOC: HO.LNP 09:52
PROVIDERS: PCP Nurse Practitioner Family; Visit Provider Advanced Practice Midwife
DX: Z01.419 Encounter for gynecological examination (general) (routine) without abnormal findings (principal); Z80.3 Family history of malignant neoplasm of breast; F41.1 Generalized anxiety disorder; Z11.3 Encounter for screening for infections with a predominantly sexual mode of transmission; Z83.2 Family history of diseases of the blood and blood-forming organs and certain disorders involving the immune mechanism; Z11.51 Encounter for screening for human papillomavirus (HPV); Z20.2 Contact with and (suspected) exposure to infections with a predominantly sexual mode of transmission
CPT/HCPCS: 81515; 87491; 87591; 87626; 88175; 99385